=== PATIENT | female | born 2000 | race Two or more races ===

== ENCOUNTER 2019-01-07 02:57 | Observation (INO) | payer MEDICAID, OTHER ==
[~2019-01-07] VITALS: Ht 157.5 cm; Wt 55.3 kg
[2019-01-07] MEDS ORDERED: TERBUTALINE SULFATE 1 MG/ML 1ML VIAL SC ONE (03:37)
[2019-01-07] MEDS ORDERED: LACTATED RINGER'S 1,000 ML IV ONE ×2 (04:00→04:06)
[2019-01-07] MEDS: TERBUTALINE SULFATE 1 MG/ML 1ML VIAL SC SCH ×2 (04:17→05:16)
[2019-01-07] MEDS ORDERED: ONDANSETRON HCL 4 MG/2 ML VIAL IV ONE (05:15)
[2019-01-07] MEDS ORDERED: BETAMETHASONE ACET (6MG/ML) 5ML VIAL IM ONE (06:15)
[2019-01-07] MEDS ORDERED: NIFEdipine 10 MG CAP PO ONE (06:15)
[2019-01-07] MEDS ORDERED: ALUM & MAG HYDROX-SIMETH LIQ(MAALOX) 30 ML PO ONE (07:15)
[2019-01-08] MEDS ORDERED: PREN27TA7 OR (13:55)
[2019-01-08] MEDS ORDERED: NIF10C GT (13:55)
== END 2019-01-07 07:55 | disposition home or self-care (01) | DRG 566 ==
LOC: LDRP 02:57
PROVIDERS: ADMIT Obstetrics & Gynecology; ATTEND Obstetrics & Gynecology
DX: O21.2 Late vomiting of pregnancy (principal); O26.893 Other specified pregnancy related conditions, third trimester; H53.8 Other visual disturbances; O62.9 Abnormality of forces of labor, unspecified; Z3A.36 36 weeks gestation of pregnancy
CPT/HCPCS: 59025; 76815; 81002; 96361; 96372; 96374; G0378; J0702; J2405; J3105; 96365; 96366

== ENCOUNTER 2019-01-08 12:17 | Observation (INO) | payer MEDICAID, OTHER ==
[~2019-01-08] VITALS: Ht 30.5 cm; Wt 0.5 kg
[2019-01-08] MEDS ORDERED: BETAMETHASONE ACET (6MG/ML) 5ML VIAL IM ONE (12:30)
[2019-01-08 13:07] LABS: Basophils # (auto) 0 uL; Basophils % (auto) 0.1 % (0.0-2.0); Eosinophils # (auto) 0 uL; Eosinophils % (auto) 0.3 % (0.0-7.0); Hematocrit 34.1 % (36.0-46.0); Hemoglobin 11.6 g/dL (12.2-16.2); Lymphocytes # (auto) 1.8 uL; Lymphocytes % (auto) 15.4 % (10.0-50.0); Mean Corpuscular Hemoglobin 32.1 pg (28.0-32.0); Mean Corpuscular Hgb Conc. 34.1 g/dL (32.0-36.0); Mean Corpuscular Volume 94.2 fL (80.0-100.0); Monocytes # (auto) 0.8 uL; Monocytes % (auto) 7.3 % (0.0-12.0); Neutrophils # (auto) 8.8 uL; Neutrophils % (auto) 76.9 % (37.0-80.0); Platelet Count (auto) 152 10^3/uL (140-450); Red Blood Cells 3.62 10^6/uL (4.0-5.20); Red Cell Distribution Width 13.8 % (11.8-14.3); White Blood Cell 11.4 10^3/uL (4.4-10.8)
[2019-01-08] MEDS ORDERED: PREN27TA7 OR (13:55)
[2019-01-08] MEDS ORDERED: NIF10C GT (13:55)
[2019-01-09 05:06] LABS: RPR Non Reactive (Non Reactive)
== END 2019-01-08 15:15 | disposition home or self-care (01) | DRG 566 ==
LOC: LDRP 12:17
PROVIDERS: ADMIT Specialist; ATTEND Specialist
DX: O26.613 Liver and biliary tract disorders in pregnancy, third trimester (principal); K83.1 Obstruction of bile duct; Z3A.36 36 weeks gestation of pregnancy
CPT/HCPCS: 36415; 59025; 76815; 81002; 84112; 85025; 86592; 96372; G0378

== ENCOUNTER 2019-01-15 08:44 | Observation (INO) | payer OTHER, MEDICAID ==
[~2019-01-15 08:44] MED LIST: NIF10C GT; PREN27TA7 OR
== END 2019-01-15 10:04 | disposition home or self-care (01) | DRG 563 ==
LOC: LDRP 08:44
PROVIDERS: ADMIT Obstetrics & Gynecology; ATTEND Obstetrics & Gynecology
DX: O60.03 Preterm labor without delivery, third trimester (principal); Z3A.37 37 weeks gestation of pregnancy
CPT/HCPCS: 59025; 76818; 81002; G0378

== ENCOUNTER 2019-01-18 20:28 | Observation (INO) | payer OTHER, MEDICAID ==
[~2019-01-18] VITALS: Ht 157.5 cm; Wt 55.8 kg
--- NOTE | 2019-01-18 20:28 | NUR ---
2027 Pt. [facility] c/o Uterine contractions. Pt. completes paperwork in lobby, provides urine sample. No distress noted.
--- NOTE | 2019-01-18 21:40 | NUR ---
2019 Pt. escorted to exam room #1. Pt. ambulates with steady gait, accompanied by RN. Pt. octavio harris and situates self in bed. Not distress noted EFM started. Addendum: 01/18/19 at 2143 by NEVILLE PAGE RN RN amend time to 2036
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
[2019-01-18] MEDS ORDERED: LACTATED RINGER'S 1,000 ML IV ONE (22:28)
[2019-01-18] MEDS ORDERED: TERBUTALINE SULFATE 1 MG/ML 1ML VIAL SC ONE (23:29)
[2019-01-18] MEDS ORDERED: TERBUTALINE SULFATE 1 MG/ML 1ML VIAL SC PRN (23:30)
--- NOTE | 2019-01-19 01:30 | NUR ---
IV removal IV DC'd with clean sterile technique, catheter fully intact. Pressure dressing applied to site. Patient tolerated well. NOTE:
--- NOTE | 2019-01-19 01:44 | NUR ---
Routine varbal and written antepartum discharge instructions provided including antepartum discharge instruction sheet, Centricity discharge instructions, labor precautions, increase water intake to at least 1 gallon water daily, kick counts instructions, continue vitamins and /or home meds a sprescribed by OB physician. Pt. to maintain next scheduled follow appointment with Dr. Paris on today at 10:15 am.
== END 2019-01-19 01:41 | disposition home or self-care (01) | DRG 566 ==
LOC: LDRP 20:28
PROVIDERS: ADMIT Specialist; ATTEND Specialist
DX: O62.9 Abnormality of forces of labor, unspecified (principal); Z3A.37 37 weeks gestation of pregnancy
CPT/HCPCS: 59025; 81002; 96372; G0378; J3105; 96365; 96366

== ENCOUNTER 2019-01-25 08:20 | Inpatient (IN) | payer MEDICAID, OTHER ==
[~2019-01-25] VITALS: Ht 160 cm; Wt 55.8 kg
[2019-01-25] VITALS (12 sets, daily range): BP systolic 102–119; BP diastolic 52–72
[2019-01-25] MEDS: LACTATED RINGER'S 1,000 ML IV SCH ×2 (09:33→17:58)
[2019-01-25] MEDS ORDERED: TERBUTALINE SULFATE 1 MG/ML 1ML VIAL SC ONE (09:45)
[2019-01-25 09:56] LABS: Basophils # (auto) 0.1 uL; Basophils % (auto) 0.3 % (0.0-2.0); Eosinophils # (auto) 0 uL; Eosinophils % (auto) 0.2 % (0.0-7.0); Hematocrit 36.6 % (36.0-46.0); Hemoglobin 12.6 g/dL (12.2-16.2); Lymphocytes # (auto) 1.6 uL; Lymphocytes % (auto) 9.2 % (10.0-50.0); Mean Corpuscular Hgb Conc. 34.3 g/dL (32.0-36.0); Mean Corpuscular Volume 93.2 fL (80.0-100.0); Monocytes # (auto) 0.9 uL; Monocytes % (auto) 5.2 % (0.0-12.0); Neutrophils # (auto) 14.4 uL; Neutrophils % (auto) 85.1 % (37.0-80.0); Platelet Count (auto) 122 10^3/uL (140-450); Red Blood Cells 3.92 10^6/uL (4.0-5.20); Red Cell Distribution Width 13.9 % (11.8-14.3); White Blood Cell 16.9 10^3/uL (4.4-10.8)
[2019-01-25] MEDS ORDERED: TETRACAINE 1% INJ 2 ML VIAL IJ ONE (09:56)
[2019-01-25 10:12] LABS: Urine Bacteria FEW /hpf (None Seen); Urine Blood 2+ /uL (Negative); Urine Mucus FEW (None Seen); Urine Specific Gravity 1.016 (1.001-1.035); Urine WBC 198 /hpf (0 - 5); Urine WBC Clumps PRESENT /hpf (None Seen)
[2019-01-25 10:13] LABS: INR < 0.93 (0.9-1.15); Partial Thromboplastin Time 26.2 sec (23.64-32.05)
[2019-01-25 10:21] LABS: Albumin 3.2 g/dL (3.4-5.0); Calcium 8.5 mg/dL (8.5-10.1); Potassium 3.5 mmol/L (3.5-5.1)
[2019-01-25 10:24] LABS: Bilirubin, Total 0.4 mg/dL (0.2-1.0); Total Protein 7.3 g/dL (6.4-8.2)
[2019-01-25 10:55] LABS: Alcohol, Urine < 3.0 mg/dL (0-5); Amphetamine Screen, Urine NEGATIVE (NEGATIVE); Barbiturate Scree,Urine NEGATIVE (NEGATIVE); Benzodiazephine Screen, Urine NEGATIVE (NEGATIVE); Cannabinoid Screen, Urine NEGATIVE (NEGATIVE); Cocaine Screen, Urine NEGATIVE (NEGATIVE); Opiate Scree,Urine NEGATIVE (NEGATIVE); Phencyclidine Screen, Urine NEGATIVE (NEGATIVE)
[2019-01-25] MEDS ORDERED: LACT. RINGERS/OXYTOCIN 20UNITS 1,000 ML IV SCH (10:58)
[2019-01-25] MEDS ORDERED: MIDAZOLAM HCL 1MG/1ML-2 ML VIAL IV PRN (11:00)
[2019-01-25] MEDS ORDERED: NALOXONE HCL 0.4 MG/ML VIAL IV PRN (11:00)
[2019-01-25] MEDS ORDERED: MORPHINE SULFATE 4 MG/ML SYR/VIAL IV PRN (11:00)
[2019-01-25] MEDS ORDERED: ceFAZolin 1GM/50ML 50 ML IV SCH (11:00)
[2019-01-25] MEDS ORDERED: NALBUPHINE HCL 10 MG/1ml INJECTION SUBCUT ONE (11:00)
[2019-01-25] MEDS ORDERED: ePHEDrine SULFATE 50 MG/ML AMP IV PRN (11:00)
[2019-01-25] MEDS ORDERED: HYDROmorphone HCL 2 MG/ML VL IV PRN ×2 (11:00)
[2019-01-25] MEDS ORDERED: diphenhdrAMINE HCL 50 MG/1 ML VL IV PRN (11:00)
[2019-01-25] MEDS ORDERED: DexAMETHasone SOD PHOS 10MG/1ML VIAL INJ IV PRN (11:00)
[2019-01-25] MEDS ORDERED: ONDANSETRON HCL 4 MG/2 ML VIAL IV PRN ×2 (11:00)
[2019-01-25] MEDS ORDERED: LABETALOL HCL 5 MG/ML 4ML SYRINGE IV PRN (11:00)
--- NOTE | 2019-01-25 11:22 | NUR ---
Report received from PACU parts runner Rustam.
--- NOTE | 2019-01-25 11:32 | NUR ---
Pt returns to room via bed from recovery in stable condition. Lower abdominal dressing C/D/I with abdominal binder in place, SCD's on and massaging. Incentive spirometer at bedside, pt educated on use at least 10x per hour while awake. pt verbalizes understanding. Lochia and fundus checked with recovery room rn mark. Addendum: 01/25/19 at 1344 by Clotilde Ramsey RN Amended: Links added.
[2019-01-25] MEDS ORDERED: ACETAMINOPHEN IV 1000 MG/100ML (10MG/ML) IV ONE (12:00)
--- NOTE | 2019-01-25 12:05 | NUR ---
PATIENT ARRIVED TO UNIT FROM RECOVERY ROOM AT 1132 WITH TEMP OF 95.7 AXILLARY. PROVIDED TWO WARM BLANKETS. REASSESSED TEMPERATURE AT 1205 AND GOT 96 AXILLARY. PATIENT DENIES ANY DIFFICULTY BREATHING OR SHIVERING, OTHER VITAL SIGNS STABLE. 1220 REASSESSED PATIENTS TEMP AND GOT 97.4.
[2019-01-25] MEDS: ONDANSETRON HCL 4 MG/2 ML VIAL IV PRN ×3 (13:55→23:21)
[2019-01-25] MEDS: MORPHINE SULFATE 4 MG/ML SYR/VIAL IV PRN ×3 (13:56→23:21)
--- NOTE | 2019-01-25 16:00 | NUR ---
SPOKE WITH DR ARTHUR. DR AWARE OF PATIENTS URINE OUTPUT OF 40 ML/HR PATIENTS LOW TEMP UPON ARRIVAL TO UNIT AND CURRENT TEMP. ORDERS RECEIVED TO BOLUS PATIENT WITH LR IF URINE OUTPUT DROPS BELOW 30ML/HR
--- NOTE | 2019-01-25 17:30 | NUR ---
PATIENT RECIEVED ALBERTO CARE. SMALL TO SCANT BLEEDING
[2019-01-25] MEDS: ceFAZolin 1GM/50ML 50 ML IV SCH (17:59)
--- NOTE | 2019-01-25 18:06 | NUR ---
SHIFT REPORT GIVEN TO NEVILLE Addendum: 01/25/19 at 1806 by Clotilde Zazueta RN Amended: Links added.
[2019-01-25 20:20] LABS: Basophils # (auto) 0 uL; Basophils % (auto) 0.3 % (0.0-2.0); Eosinophils # (auto) 0 uL; Eosinophils % (auto) 0.3 % (0.0-7.0); Hematocrit 26.9 % (36.0-46.0); Hemoglobin 9.4 g/dL (12.2-16.2); Lymphocytes # (auto) 1.8 uL; Lymphocytes % (auto) 11.5 % (10.0-50.0); Mean Corpuscular Hemoglobin 32.5 pg (28.0-32.0); Mean Corpuscular Volume 92.7 fL (80.0-100.0); Monocytes # (auto) 0.9 uL; Monocytes % (auto) 5.7 % (0.0-12.0); Neutrophils # (auto) 12.8 uL; Neutrophils % (auto) 82.2 % (37.0-80.0); Platelet Count (auto) 98 10^3/uL (140-450); Red Cell Distribution Width 13.3 % (11.8-14.3); White Blood Cell 15.6 10^3/uL (4.4-10.8)
[2019-01-26] VITALS (11 sets, daily range): BP systolic 102–125; BP diastolic 46–72
--- NOTE | 2019-01-26 01:00 | NUR ---
Dangled legs over edge of bed.
--- NOTE | 2019-01-26 01:50 | NUR ---
Dressing removed, dry, incision w/o redness or swelling, incision approximated no drainage noted.
--- NOTE | 2019-01-26 02:00 | NUR ---
Pt.OOB to ambullate to chair. Tolerated well
--- NOTE | 2019-01-26 02:30 | NUR ---
Pt. Ambulate back to bed. Tolerated well.
[2019-01-26] MEDS: ceFAZolin 1GM/50ML 50 ML IV SCH ×2 (02:52→10:04)
[2019-01-26] MEDS: LACTATED RINGER'S 1,000 ML IV SCH ×3 (02:57→17:15)
[2019-01-26] MEDS: MORPHINE SULFATE 4 MG/ML SYR/VIAL IV PRN ×2 (03:03→07:19)
[2019-01-26] MEDS: ONDANSETRON HCL 4 MG/2 ML VIAL IV PRN ×2 (03:04→07:19)
[2019-01-26 07:20] LABS: Basophils # (auto) 0 uL; Basophils % (auto) 0.2 % (0.0-2.0); Eosinophils # (auto) 0.1 uL; Eosinophils % (auto) 0.4 % (0.0-7.0); Hematocrit 30.4 % (36.0-46.0); Hemoglobin 10.4 g/dL (12.2-16.2); Lymphocytes # (auto) 1.1 uL; Mean Corpuscular Hemoglobin 32.6 pg (28.0-32.0); Mean Corpuscular Hgb Conc. 34.2 g/dL (32.0-36.0); Mean Corpuscular Volume 95.2 fL (80.0-100.0); Monocytes # (auto) 0.8 uL; Monocytes % (auto) 5.5 % (0.0-12.0); Neutrophils # (auto) 12.2 uL; Neutrophils % (auto) 85.9 % (37.0-80.0); Platelet Count (auto) 96 10^3/uL (140-450); Red Cell Distribution Width 13.6 % (11.8-14.3); White Blood Cell 14.1 10^3/uL (4.4-10.8)
[2019-01-26] MEDS ORDERED: HYDROcodone-ACET 5/325MG TAB PO PRN (08:00)
--- NOTE | 2019-01-26 08:30 | NUR ---
GOT PATIENT UP TO AMBULATE TO THE BATHROOM, PATIENT TOLERATED WELL. SAT THE PATIENT ON THE TOILET. WENT INTO TO CHECK ON HER A FEW TIMES BEFORE PATIENT HIT THE CALL LIGHT. TWO OTHER NURSES AND I WENT IN TO CHECK ON PATIENT. SHE LOOKED PALE AND STATED SHE DIDNT FEEL WELL AND FELT LIKE SHE WAS GOING TO VOMIT. GRABBED AN EMESES BAG AND USED THE AMMONIA ON THE PATIENT. GOT PATIENT BACK TO BED. CHECKED VITALS AND HOOKED UP BACK UP TO LR FLUIDS WITH A BOLUS. PATIENTS VITALS WERE 92/62 AND O2 WAS SATING THE 80S. PATIENT WAS GIVEN 2L OF O2 BY NASAL CANULA ALL OTHER VITALS WERE STABLE. 0930 PATIENTS BLOOD PRESSURE IS 106/59 AND STILL RECEIVING 2L OF NC. PATIENT STATS THAT SHE IS FEELING A LITTLE BETTER. REASSESS AT 10AM
[2019-01-26] MEDS ORDERED: AMMONIA 0.33 ML INHALANT IN ONE (08:34)
[2019-01-26] MEDS ORDERED: BISACODYL 10 MG RECT SUPP PR PRN (10:00)
[2019-01-26] MEDS: DOCUSATE SOD 100 MG CAP PO SCH ×2 (10:03→22:03)
[2019-01-26] MEDS: DOCUSATE CALCIUM 240 MG CAP PO SCH (10:03)
[2019-01-26] MEDS: IBUPROFEN 800 MG TAB PO PRN ×2 (10:03→17:27)
--- NOTE | 2019-01-26 10:15 | NUR ---
PATIENTS COLOR IS BACK, VITALS ARE STABLE. BP 122/59, 97 O2 SATURATION AND IS OFF OXYGEN. PULSE 86 AND TEMP 98.2.
[2019-01-26] MEDS: SIMETHICONE 80 MG CHEWABLE TABLET PO SCH ×4 (11:52→21:57)
[2019-01-26] MEDS: HYDROcodone-ACET 5/325MG TAB PO PRN ×2 (15:35→18:50)
--- NOTE | 2019-01-26 22:05 | NUR ---
Report received from Lisa aCse RN, assumed care of patient.
[2019-01-27] MEDS: HYDROcodone-ACET 5/325MG TAB PO PRN ×4 (00:05→18:45)
[2019-01-27] MEDS: IBUPROFEN 800 MG TAB PO PRN ×3 (01:48→20:27)
[2019-01-27 02:50] VITALS: BP 122/69
[2019-01-27 04:06] LABS: RPR Non Reactive (Non Reactive)
[2019-01-27] MEDS ORDERED: SIMETHICONE 80 MG CHEWABLE TABLET PO ONE (05:30)
--- NOTE | 2019-01-27 06:48 | NUR ---
Lower abdominal incision clean, dry and well approximated with hardy present and intact. Addendum: 01/27/19 at 0649 by Georgia Gardner RN Amended: Links added.
[2019-01-27] MEDS: DOCUSATE CALCIUM 240 MG CAP PO SCH (11:01)
[2019-01-27] MEDS: DOCUSATE SOD 100 MG CAP PO SCH ×2 (11:01→21:45)
[2019-01-27 15:00] VITALS: BP 126/76
--- NOTE | 2019-01-27 16:03 | NUR ---
Assessment and SS Consult Pt is a 18 yr old female who just completed live by pamela. SW received a consult for high depression score, and history of depression. SS discussed depression screening results with pt. Pt stated that she didn't understand why she scored high on the test because she is doing just fine. She has taken anti-depressants in the past but hasn't used any for a while and is actively going to counseling. Pt states that she doesn't feel depressed and is excited for her new baby and to go home. Pt states that she doesn't currently feel like to she needs any other tx for depression. Pt stated that she has good social support with FOB, her mom and her best friend. Pt currently lives at home with father of her daughter and mother. Pt does not use dme in home and functions independently. Pt stated that she is financially able to take care of herself. Pt stated that she will feel safe to d/c home and declined any SI/HI. No needs or concerns at this time. Addendum: 01/27/19 at 1611 by TAYLOR BENITES Amended: Links added.
[2019-01-27] MEDS: LACTATED RINGER'S 1,000 ML IV SCH ×2 (17:15→21:00)
[2019-01-27] MEDS: SIMETHICONE 80 MG CHEWABLE TABLET PO SCH ×2 (17:43→21:45)
--- NOTE | 2019-01-27 17:50 | NUR ---
Pt requests breast pump. Pt educated regarding benefits of exclusive . Pt verbalizes understanding and continues to request pump. Pt instructed regarding use of breast pump and breast milk storage. Pt verbalizes understanding of teaching. All questions and concerns addressed.
[2019-01-27 19:00] VITALS: BP 131/71
[2019-01-27 22:57] VITALS: BP 104/66
[2019-01-28] MEDS: HYDROcodone-ACET 5/325MG TAB PO PRN ×2 (00:51→08:27)
[2019-01-28 02:53] VITALS: BP 103/78
[2019-01-28] MEDS: IBUPROFEN 800 MG TAB PO PRN (04:46)
--- NOTE | 2019-01-28 07:45 | NUR ---
[place] removal 12 hardy removed by this RN per Dr Paris's orders. Steri strips placed over site, PT tolerated well.
[2019-01-28] MEDS: SIMETHICONE 80 MG CHEWABLE TABLET PO SCH (08:26)
--- NOTE | 2019-01-28 08:28 | NUR ---
Discharge: Discharge instructions given as ordered. Pt encouraged to follow up with VP as instructed. All questions and concerns addressed. Patient verbalized understanding. Medication reconciliation completed and copy given to patient. All required/requested vaccines given and copies of vaccinations given to patient. Patient encouraged to prepare to depart unit.
--- NOTE | 2019-01-28 10:13 | NUR ---
Discharge: Patient taken to vehicle via wheelchair with all personal belongings, accompanied by staff and family member. No distress noted at time of departure, no adverse changes in status since initial assessment.
== END 2019-01-28 10:13 | disposition home or self-care (01) | DRG 540 ==
LOC: LDRP 08:20 → OBSVTOIN 09:10 → LDRP 10:28
PROVIDERS: ADMIT Obstetrics & Gynecology; ATTEND Obstetrics & Gynecology
PROC: 10D00Z1 Extraction of Products of Conception, Low, Open Approach (ICD-10-PCS; principal; 2019-01-25 10:08)
DX: O34.211 Maternal care for low transverse scar from previous cesarean delivery (principal); O99.344 Other mental disorders complicating childbirth; Z37.0 Single live birth; Z3A.38 38 weeks gestation of pregnancy
CPT/HCPCS: 36415; 51702; 59025; 80053; 80307; 81001; 81002; 84112; 85025; 85610; 85730; 86592; 86850; 86900; 86901; 94762; 96365; 96366; 96372; 96375; G0378; J0131; J0690; J2405

== ENCOUNTER 2019-03-31 15:30 | Emergency (ER) | payer MEDICAID ==
[~2019-03-31] VITALS: Ht 157.5 cm; Wt 49.9 kg
[~2019-03-31 15:30] MED LIST changes: -NIF10C GT
[2019-03-31 15:57] VITALS: BP 111/81
[2019-03-31 16:20] LABS: Basophils # (auto) 0 uL; Basophils % (auto) 0.6 % (0.0-2.0); Eosinophils # (auto) 0.1 uL; Hematocrit 41.8 % (36.0-46.0); Hemoglobin 13.6 g/dL (12.2-16.2); Lymphocytes # (auto) 1.7 uL; Lymphocytes % (auto) 26.9 % (10.0-50.0); Mean Corpuscular Hemoglobin 28.9 pg (28.0-32.0); Mean Corpuscular Hgb Conc. 32.6 g/dL (32.0-36.0); Mean Corpuscular Volume 88.5 fL (80.0-100.0); Monocytes # (auto) 0.5 uL; Monocytes % (auto) 7.4 % (0.0-12.0); Neutrophils % (auto) 63.1 % (37.0-80.0); Platelet Count (auto) 247 10^3/uL (140-450); Red Blood Cells 4.72 10^6/uL (4.0-5.20); Red Cell Distribution Width 14.7 % (11.8-14.3); White Blood Cell 6.4 10^3/uL (4.4-10.8)
[2019-03-31 16:37] LABS: Urine Amorphous Crystal FEW /hpf (None Seen); Urine Bacteria FEW /hpf (None Seen); Urine Blood Negative /uL (Negative); Urine Specific Gravity 1.012 (1.001-1.035); Urine WBC 11 /hpf (0 - 5)
== END 2019-03-31 18:59 | disposition left against medical advice (07) ==
LOC: ER 15:35
DX: N39.0 Urinary tract infection, site not specified (principal)
CPT/HCPCS: 36415; 81001; 81025; 85025

== ENCOUNTER 2024-04-07 22:55 | Emergency (ER) | payer MEDICAID ==
[~2024-04-07] VITALS: Ht 162.6 cm; Wt 43.2 kg
[2024-04-08 00:35] LABS: Urine Bacteria None Seen /hpf (None Seen)
[2024-04-08 00:42] LABS: Urine Blood Negative /uL (Negative); Urine Clarity Clear (Clear); Urine Color Light-Yellow (Yellow); Urine Protein, UAD Negative (Negative); Urine Squamous Epithelial Cell None Seen /hpf (<5); Urine Urobilinogen Normal (Negative); Urine WBC <1 /hpf (0 - 5); Urine pH 7.5 (5.0-9.0)
--- NOTE | 2024-04-08 00:46 | ECG ---
[facility] Test Date: 2024-04-08 Test Time: 00:24:44 Pat Name: TALAT WHITLEY Department: ER Room: Gender: F Offal Worker: ANUSHA : 2000 Requested By: MARY GRACE MIRANDA Order Number: [id number] Reading MD: Jose Mario Measurements Intervals [place] Rate: 126 P: 66 AK: 124 QRS: 75 QRSD: 98 T: 67 QT: 450 QTc: 652 Interpretive Statements Sinus tachycardia Nonspecific repol abnormality, diffuse leads Prolonged QT interval Electronically Signed On 04-09-2024 8:49:11 PST by Jose Mario Please click the below link to view image of tracing.
[2024-04-08 00:58] LABS: Basophils # (auto) 0.1 10 ^3/uL (0-0.2); Basophils % (auto) 0.4 % (0.0-2.0); Eosinophils # (auto) 0 10 ^3/uL (0-0.8); Eosinophils % (auto) 0.1 % (0.0-7.0); Hematocrit 38.6 % (36.0-46.0); Hemoglobin 12.8 g/dL (12.2-16.2); Lymphocytes # (auto) 1.2 10 ^3/uL (0.4-5.4); Lymphocytes % (auto) 7.2 % (10.0-50.0); Mean Corpuscular Hemoglobin 29.7 pg (28.0-32.0); Mean Corpuscular Hgb Conc. 33.1 g/dL (32.0-36.0); Mean Corpuscular Volume 89.7 fL (80.0-100.0); Monocytes # (auto) 1.3 10 ^3/uL (0-1.3); Monocytes % (auto) 7.4 % (0.0-12.0); Neutrophils # (auto) 14.6 10 ^3/uL (1.6-8.6); Neutrophils % (auto) 84.9 % (37.0-80.0); Platelet Count (auto) 278 10^3/uL (140-450); Red Cell Distribution Width 14.3 % (11.8-14.3); White Blood Cell 17.2 10^3/uL (4.4-10.8)
[2024-04-08 01:18] LABS: Alanine Aminotransferase 12 U/L (7-40); Anion Gap 9 (5-15); Aspartate Aminotransferase 17 U/L (13-40); BUN/Creatinine Ratio 16.7 (10.0-20.0); Blood Urea Nitrogen 12 mg/dL (9-23); Calcium 10.1 mg/dL (8.7-10.4); Carbon Dioxide 26 mmol/L (20-31); Chloride 104 mmol/L (98-107); Glucose 102 mg/dL (74-106); Magnesium 1.8 mg/dL (1.6-2.6); Potassium 3.8 mmol/L (3.5-5.1); Sodium 139 mmol/L (136-145); Total Protein 7.6 g/dL (5.7-8.2)
[2024-04-08 01:23] LABS: Acetaminophen < 2.0 UG/ML (10.0-20.0); Salicylate < 3.0 mg/dL (-30)
[2024-04-08 01:24] LABS: Albumin 4.8 g/dL (3.2-4.8); Alkaline Phosphatase 118 U/L (46-116); Bilirubin, Total 0.2 mg/dL (0.2-1.0)
[2024-04-08 01:30] VITALS: PULSE 110; RESP 12; O2SAT 98
[2024-04-08 01:47] LABS: Cannabinoid Screen, Urine Neg (NEGATIVE)
[2024-04-08 01:58] LABS: Blood Alcohol < 3.0 mg/dL (<10)
[2024-04-08 01:58] LABS: Amphetamine Screen, Urine Neg (NEGATIVE); Barbiturate Scree,Urine Neg (NEGATIVE); Benzodiazephine Screen, Urine Neg (NEGATIVE); Cocaine Screen, Urine Neg (NEGATIVE); Opiate Scree,Urine Neg (NEGATIVE); Phencyclidine Screen, Urine Neg (NEGATIVE)
--- NOTE | 2024-04-08 02:20 | ED.PDOC ---
History of Present Illness HPI Comments 23-year-old female presents with a chief complaint of tremors, tachycardia, and depression. Patient was wheeled in from [facility] in the ER parking lot and was non- verbal. Patient was reluctant to explain anything going on with her and any symptoms that she was experiencing. Mother of patient endorses that patient recently lost her 9-year-old daughter x 2 weeks ago to sleep apnea and has been in a depression. Patient endorses that she took roughly 40 tablets of 10mg Kratom and also finished off her entire supply of [place] medication that she uses for chronic back pain. Patient is tachycardic and is reluctant to disclose whether or not she was taking medication to harm herself. Chief Complaint: Overdose Time Seen by MD: 02:00 Reviewed Notes: Medications, Allergies Allergies: Coded Allergies: NO KNOWN ALLERGIES (Unverified , 01/07/19) Home Meds Reported Medications Vit W/ Ferrous Fumara () 1 Tab Tab, 1 TAB OR DAILY, TAB 01/08/19 Information Source: Relative (Mother) Mode of Arrival: Wheelchair Severity: Moderate Timing: Days Duration: Since onset Prehospital treatment: None Past Medical History PAST MEDICAL HISTORY: Depression Surgical History: BINGO ATTENDANT History: Denies all BINGO ATTENDANT Hx Family History Family History: Unknown Social History Smoker: Non-Smoker Alcohol: Denies ETOH Use Drugs: Marijuana Lives In: Home Constitutional: denies: chills, diaphoresis, fatigue, fever, malaise, sweats, weakness, others EENTM: denies: blurred vision, double vision, ear bleeding, ear discharge, ear drainage, ear pain, ear ringing, eye pain, eye redness, hearing loss, mouth pain, mouth swelling, nasal discharge, nose bleeding, nose congestion, nose pain, photophobia, tearing, throat pain, throat swelling, voice changes, others Respiratory: denies: cough, hemoptysis, orthopnea, SOB at rest, shortness of breath, SOB with excertion, stridor, wheezing, others Cardiovascular: reports: irregular heart beat; denies: chest pain, dizzy spells, diaphoresis, Dyspnea on exertion, edema, left arm pain, lightheadedness, palpitations, PND, syncope, others Gastrointestinal: denies: abdomen distended, abdominal pain, blood streaked bowels, constipated, diarrhea, dysphagia, difficulty swallowing, hematemesis, melena, nausea, poor appetite, poor fluid intake, rectal bleeding, rectal pain, vomiting, others Genitourinary: denies: abnormal vagina bleeding, burning, dyspareunia, dysuria, flank pain, frequency, hematuria, incontinence, pain, , vagina discharge, urgency, others Neurological: reports: tremors; denies: dizziness, fainting, headache, left sided numbness, left sided weakness, numbness, paresthesia, pre-existing deficit, right sided numbness, right sided weakness, seizure, speech problems, tingling, weakness, others Musculoskeletal: denies: back pain, gout, joint pain, joint swelling, muscle pain, muscle stiffness, neck pain, others Integumetry: denies: bruises, change in color, change in hair/nails, dryness, laceration, lesions, lumps, rash, wounds, others Allergic/Immunocompromised: denies: Difficulty Healing, Frequent Infections, Hives, Itching, others Hematologic/Lymphatic: denies: anemia, blood clots, easy bleeding, easy bruising, swollen glands, others Endocrine: denies: excessive hunger, excessive sweating, excessive thirst, excessive urination, flushing, intolerance to cold, intolerance to heat, unexplained weight gain, unexplained weight loss, others Psychiatric: reports: depression; denies: anxiety, bipolar disorder, hopeless, panic disorder, schizophrenia, sleepless, suicidal, others All Other Systems: Reviewed and Negative Physical Exam General Appearance: Mild Distress, Thin HEENT: Normal ENT Inspection, Pharynx Normal, TMs Normal Neck: Full Range of Motion, Non-Tender, Normal, Normal Inspection Respiratory: Chest Non-Tender, Lungs Clear, No Accessory Muscle Use, No Respiratory Distress, Normal Breath Sounds Cardiovascular: No Edema, No JVD, No Murmur, No Gallop, Normal Peripheral Puls es, Tachycardia Breast Exam: Deferred Gastrointestinal: No Organomegaly, Non Tender, No Pulsatile Mass, Normal Bowel Sounds, Soft Genitalia: Deferred Pelvic: Deferred Rectal: Deferred Extremities: No calf tenderness, Normal capillary refill, Normal inspection, Normal range of motion, Non-tender, No pedal edema Musculoskeletal : Apperance: Normal Neurologic: Alert, Other (TREMORS) Cerebellar Function: Normal Reflexes: Normal Skin: Dry, Normal Color, Warm Lymphatic: No Adenopathy Was a procedure done? Was a procedure done?: No EKG EKG : Pulse Rate (adult): 126 [place]: Normal Cardiac Rhythm: ST Differential Dx Considerations may include: Major depression anxiety disorder opioid addiction is suicidal gesture X-Ray, Labs, Meds, VS Vital Signs Date Time Temp Pulse Resp B/P (MAP) Pulse Ox O2 Delivery O2 Flow Rate FiO2 04/08/24 14:48 90 16 103/74 (84) 97 04/08/24 13:00 77 14 97/67 (77) 97 04/08/24 12:00 74 11 99/56 (70) 96 04/08/24 12:00 78 04/08/24 11:10 126 04/08/24 11:00 77 16 101/54 (70) 96 04/08/24 10:00 80 12 100/54 (69) 95 04/08/24 09:00 73 14 91/52 (65) 95 04/08/24 08:00 97.9 77 16 98/50 (66) 96 97.9 04/08/24 08:00 76 04/08/24 08:00 77 16 96 Room Air* 0 21 04/08/24 06:10 78 04/08/24 06:00 76 10 102/55 (71) 5 04/08/24 04:00 87 10 117/66 (83) 96 04/08/24 02:00 89 12 123/73 (90) 97 04/08/24 02:00 108 04/08/24 01:30 110 12 98 Room Air* 0 21 04/08/24 00:24 126 04/08/24 00:00 98.5 109 12 124/76 (92) 94 98.5 04/07/24 23:25 98.6 129 18 142/79 (100) 98 Lab Test 04/08/24 00:47 04/08/24 00:33 Range/Units White Blood Count 17.2 H 4.4-10.8 10^3/uL Red Blood Count 4.30 4.0-5.20 10^6/uL Hemoglobin 12.8 12.2-16.2 g/dL Hematocrit 38.6 36.0-46.0 % Mean Corpuscular Volume 89.7 80.0-100.0 fL Mean Corpuscular Hemoglobin 29.7 28.0-32.0 pg Mean Corpuscular Hemoglobin Concent 33.1 32.0-36.0 g/dL Red Cell Distribution Width 14.3 11.8-14.3 % Platelet Count 278 140-450 10^3/uL Mean Platelet Volume 7.3 6.9-10.8 fL Neutrophils (%) (Auto) 84.9 H 37.0-80.0 % Lymphocytes (%) (Auto) 7.2 L 10.0-50.0 % Monocytes (%) (Auto) 7.4 0.0-12.0 % Eosinophils (%) (Auto) 0.1 0.0-7.0 % Basophils (%) (Auto) 0.4 0.0-2.0 % Neutrophils # (Auto) 14.6 H 1.6-8.6 10 ^3/uL Lymphocytes # (Auto) 1.2 0.4-5.4 10 ^3/uL Monocytes # (Auto) 1.3 0-1.3 10 ^3/uL Eosinophils # (Auto) 0 0-0.8 10 ^3/uL Basophils # (Auto) 0.1 0-0.2 10 ^3/uL Nucleated Red Blood Cells 0.0 % Sodium Level 139 136-145 mmol/L Potassium Level 3.8 3.5-5.1 mmol/L Chloride Level 104 98-107 mmol/L Carbon Dioxide Level 26 20-31 mmol/L Anion Gap 9 5-15 Blood Urea Nitrogen 12 9-23 mg/dL Creatinine 0.72 0.550-1.02 mg/dL Glomerular Filtration Rate Calc 119 >90 mL/min BUN/Creatinine Ratio 16.7 10.0-20.0 Serum Glucose 102 74-106 mg/dL Calcium Level 10.1 8.7-10.4 mg/dL Magnesium Level 1.8 1.6-2.6 mg/dL Total Bilirubin 0.2 0.2-1.0 mg/dL Aspartate Amino Transferase (AST) 17 13-40 U/L Alanine Aminotransferase (ALT) 12 7-40 U/L Alkaline Phosphatase 118 H 46-116 U/L Total Protein 7.6 5.7-8.2 g/dL Albumin 4.8 3.2-4.8 g/dL Salicylates Level < 3.0 -30 mg/dL Acetaminophen Level < 2.0 L 10.0-20.0 UG/ML Plasma/Serum Blood Alcohol < 3.0 <10 mg/dL Urine Color Light-yellow Yellow Urine Clarity Clear Clear Urine pH 7.5 5.0-9.0 Urine Specific [place] 1.010 1.001-1.035 Urine Protein Negative Negative Urine Ketones Negative Negative Urine Blood Negative Negative /uL Urine Nitrite Negative Negative Urine Bilirubin Negative Negative Urine Urobilinogen Normal Negative mg/dL Urine Leukocyte Esterase Negative Negative /uL Urine RBC 1 0 - 4 /hpf Urine WBC <1 0 - 5 /hpf Urine Squamous Epithelial Cells None seen <5 /hpf Urine Bacteria None seen None Seen /hpf Urine Glucose Normal Normal mg/dL Urine Opiates Screen Neg NEGATIVE Urine Fentanyl Screen Neg NEGATIVE Urine Barbiturates Screen Neg NEGATIVE Urine Phencyclidine Screen Neg NEGATIVE Urine Amphetamines Screen Neg NEGATIVE Urine Benzodiazepines Screen Neg NEGATIVE Urine Cocaine Screen Neg NEGATIVE Urine Cannabinoids Screen Neg NEGATIVE Current Medications Medications (Trade) Dose Ordered Sig/Isabela Route Start Time Stop Time Status Last Admin Ibuprofen (Motrin Tablet) 600 mg ONCE ONCE PO 04/08/24 04:30 04/08/24 04:31 DC 04/08/24 04:30 Quetiapine Fumarate (SEROquel TABLET) 50 mg ONCE ONCE PO 04/08/24 05:30 04/08/24 05:31 DC 04/08/24 05:38 Lorazepam (Ativan Inj) 1 mg ONCE ONCE IV 04/08/24 14:15 04/08/24 14:16 DC 04/08/24 14:42 Quetiapine Fumarate (SEROquel TABLET) 100 mg ONCE ONCE PO 04/08/24 20:30 04/08/24 20:27 DC 04/08/24 20:22 X-Ray, Labs, Meds, VS Comment Course in the emergency department eventful patient came in because of major depression and severe anxiety and also overdose on [place] EKG shows sinus tachycardia at 126 CBC 45688 with 84.9% neutrophils normal H&H Urine negative UDS negative Acetaminophen and salicylates normal values ETOH negative CMP normal Magnesium 1.8 Patient is feeling better at this time she has seen psychiatry and she is on observation for voluntary hold Awaiting social insurance adviser for further care Patient is medically clear Time of 1ST Reevaluation: 02:30 Reevaluation 1ST: Unchanged Time of 2ND Reevaluation: 05:19 Reevaluation 2ND: Unchanged Time of 3RD Reevaluation: 11:06 Reevaluation 3RD: Improved Consultation: Psychiatry, Other (Patient is cleared medically at this time. Patient was evaluated by Mental Health Dr. Caro who recommends voluntary attempt at placement in a mental health facility.) Patient Education/Counseling: Diagnosis, Treatment, Prognosis Family Education/Counseling: Diagnosis, Treatment, Prognosis, No Family Present Assigned to Dr. Koenig Change of Shift?: Yes Departure 1 Departure Time of Disposition: 05:20 (Patient on voluntary hold per mental health, now wants to go home at 2035 pm, will discharge with mental health follow up as outpatient) Impression: Primary Impression: Major depression Additional Impressions: Generalized anxiety disorder Suicide gesture Opioid use disorder Disposition: 01 HOME / SELF CARE / HOMELESS Condition: Fair Discharged With: Relative Critical Care Note Critical Care Time?: No Stability Stability form required: No Heart Score Heart Score: Heart Score Response (Comments) Value History N/A 0 EKG Repolarization Disturb 1 Age <45 0 Risk Factors No known risk factors 0 Troponin N/A 0 Total 1 I personally scribed for MARY GRACE MIRANDA ([email or web address]) on 04/08/24 at 02:20. Electronically submitted by Dominik Coles ([email or web address]). MARY GRACE MIRANDA Apr 08, 2024 02:20 APARNA KOENIG MD Apr 08, 2024 05:21 JUANY VILLARREAL MD Apr 08, 2024 11:10
[2024-04-08] MEDS: IBUPROFEN 600 MG TAB PO ONE (04:30)
--- NOTE | 2024-04-08 04:30 | DVHINCON2 ---
Date of Service if different f: Apr 08, 2024 Time of Service: 04:28 Consult Consult Note PSYCHIATRY ED NEW CONSULT HPI: 23 yo F pt with PPH of depression, anxiety, and Opiate use disorder presents to ED BIB parent for intentional drug OD. Psychiatry consulted for safety evaluation and recommendations in context of current presentation Per pt, reports hx of chronic depression often mixed with anxiety, over past week experiencing worsening depressed mood, hopelessness, helplessness, negative thoughts, isolation, loss of interest, excessive guilt, decreased energy, poor sleep/appetite, amotivation and anxiety symptoms to include excessive worry, rumination/overthinking, restlessness, racing/intrusive thoughts, and irritability although some symptoms appears chronic in nature. Also intermittent SI that are fleeting with no plan/intent, states she intentionally ingested handful of norco (rx'd for CBP) because "i am addicted to it and I use Kratom to help with withdrawals, its a bad cycle", adamantly denies ingestion as suicide attempt although pt admits being more "confused" lately as she has been self- medicating more with excessive kratom and norco. Reports primary stress as recent loss of her 9 yo daughter several weeks ago from sleep apnea?. No overt manic, psychotic, cognitive, dissociative phenomena, or somatic symptoms noted. Pt currently does not have psychiatrist/therapist out in community although has sought outpt MH services in past. Currently rx'd Escitalopram 20 mg qd but intermittently med compliant Admits to recent struggles with opiate addiction, never previously in any drug tx programs Single, no living children, ?employed, lives by self, HS grad, no legal issues, some support system noted (immediate family). Unknown trauma hx. Unknown FH. No acute medical issues, hx of seizures/TBI, or recent head injuries, NKDA Does not have hx of suicide attempts, SIB/PSG, or prior psych hospitalizations/5150. Denies history of violence, unprovoked aggression, or assaultive behaviors. Does not have access to firearms. Currently denies SI/HI. No safety concerns noted during encounter. MSE: General Appearance/Behavior: Alert and awake; appears stated age, well developed, fair grooming and hygiene; calm and cooperative although bit tearful/labile/irritable, fair eye contact, no PMA/PMR Speech: coherent, rrr Thought Process: linear, logical, appears goal-directed Thought Content: Abnormal Thoughts and Perceptions: None Homicidality / Violent Thoughts: None Suicidality: adamantly denies SI Hallucinations: denies AVH Delusions: denies paranoia, persecutory, or grandiose delusions Obsessions /compulsions : None Judgment and Insight: poor/questionable judgment with fair insight Mood & Affect: "depressed" with mood-congruent, constricted/restricted, appropriate Orientation: oriented to person, place, time Attention/Concentration: appears intact Memory: grossly intact Language: no unusual or inappropriate language Assessment: 23 yo F pt with PPH of depression, anxiety, and Opiate use disorder presents to ED BIB parent for intentional drug OD of rx [place] + handful of Kratom. Pt is currently denying SI but admits to having difficulty with recent loss of daughter and ongoing opiate addiction. Limited protective factors presently. No outpt MH services at present Pt will benefit from inpatient psychiatric admission for safety, psychiatric stabilization and possible medication initiation/optimization. Pt willing to transfer to inpt psych hospitalization voluntarily. Consider 5150 hold for DTS only if needed for transfer or if no voluntary beds are available Primary Diagnosis: Adjustment disorder with mixed emotions and disturbance of conduct. Depressive disorder unspecified. Opiate use disorder, moderate Recommend vol transfer to inpt psych facility for higher level of care per pts request 1:1 sitter is recommended Obtain collateral info from external sources if/when available Recommend continuation of outpt med regimen - Escitalopram 20 mg qd One time dose of quetiapine 50 mg po per pts request Risks/benefits/alternative treatments discussed, informed consent provided by pt If patient later refuses voluntary hospitalization/ requests to be discharged from ED prior to transfer or if no voluntary beds are available, please reconsult telepsych services to evaluate for 5150 hold. Pt verbalized understanding and is receptive to above tx plan This case was discussed with ED nurse/provider and all parties in agreement with above tx plan Gerald Caro MD Plan discussed with: Patient GERALD CARO MD Apr 08, 2024 04:30
[2024-04-08] MEDS: QUEtiapine FUMARATE 25 MG TAB PO ONE (05:38)
--- NOTE | 2024-04-08 07:48 | ECG ---
[facility] Test Date: 2024-04-08 Test Time: 06:10:18 Pat Name: TALAT WHITLEY Department: ed Room: Gender: F Frame Feeder: elizabeth : 2000 Requested By: APARNA KOENIG Order Number: [id number] Reading MD: Jose Mario Measurements Intervals [place] Rate: 78 P: 20 [place]: 202 QRS: 59 QRSD: 74 T: 49 QT: 390 QTc: 445 Interpretive Statements Sinus rhythm Borderline prolonged [place] interval Baseline wander in lead(s) V1 Electronically Signed On 04-09-2024 8:49:16 PST by Jose Mario Please click the below link to view image of tracing.
[2024-04-08 08:00] VITALS: PULSE 77; RESP 16; TEMP 97.9; O2SAT 96
[2024-04-08] MEDS: LORazepam 2MG/ML-1ML VIAL IV ONE (14:42)
[2024-04-08 14:48] VITALS: BP 103/74; PULSE 90; RESP 16; O2SAT 97
[2024-04-08] MEDS: QUEtiapine FUMARATE 100 MG TAB PO ONE (20:22)
[2024-04-08] MEDS: OLANZapine 5 MG TAB PO ONE (20:37)
== END 2024-04-08 20:45 | disposition home or self-care (01) ==
LOC: ER 22:55
DX: T14.91XA Suicide attempt, initial encounter (principal); F32.9 Major depressive disorder, single episode, unspecified; F41.1 Generalized anxiety disorder; F11.90 Opioid use, unspecified, uncomplicated; R00.0 Tachycardia, unspecified; X83.8XXA Intentional self-harm by other specified means, initial encounter; Y93.89 Activity, other specified; Y92.89 Other specified places as the place of occurrence of the external cause; Y99.8 Other external cause status
CPT/HCPCS: 36415; 80053; 80307; 80320; 80329; 81001; 83735; 85025; 93005; 96374; 99285; J2060